=== PATIENT | female | born 1960 | race Hispanic/Latino ===

== ENCOUNTER 2023-07-19 07:17 | Day surgery (SDC) | payer OTHER ==
[2023-07-19] MEDS ORDERED: CLINDAMYCIN 900MG/D5W 900 MG/50 ML IVPB IV ONE (07:49)
[2023-07-19] MEDS ORDERED: NA CHLORIDE 0.9% 1,000 ML ONE (07:49)
[2023-07-19] MEDS ORDERED: MIDAZOLAM HCL 2 MG/2 ML INJ ONE (08:17)
[2023-07-19] MEDS ORDERED: LIDOCAINE 2% MPF 5 ML VIAL ONE (08:17)
[2023-07-19] MEDS ORDERED: dexAMETHasone 10 MG/ML VIAL ONE (08:17)
[2023-07-19] MEDS ORDERED: FENTANYL CITR 100 MCG/2 ML ONE (08:17)
[2023-07-19] MEDS ORDERED: ROCURONIUM 50 MG/5 ML VIAL IV ONE (08:17)
[2023-07-19] MEDS ORDERED: propofoL 200 MG/20 ML VIAL IV ONE (08:17)
[2023-07-19] MEDS ORDERED: KETAMINE HCL IN 0.9 % NACL 50 MG/5 ML SYRINGE IV ONE (08:17)
[2023-07-19] MEDS ORDERED: ONDANSETRON 4 MG/2 ML VIAL ONE (08:23)
[2023-07-19] MEDS ORDERED: BACITRACIN OINTMENT 14 GM TUBE TOP ONE (08:54)
[2023-07-19] MEDS ORDERED: LIDOCAINE HCL/EPINEPHRINE 20 ML MDV ONE (08:55)
[2023-07-19] MEDS ORDERED: EPINEPHRINE/PF 1 MG/ML AMP ONE (08:55)
[2023-07-19] MEDS ORDERED: OXYMETAZOLINE HCL 0.05% 15ML NAS ONE (08:55)
[2023-07-19] MEDS ORDERED: OFLOXACIN OPH 0.3%-5 ML BTL ONE ×2 (08:55→12:12)
[2023-07-19] MEDS ORDERED: Mastisol Adhesive Liq ONE ×3 (09:37→11:21)
[2023-07-19] MEDS ORDERED: EPHEDRINE SULF 50 MG/ML VIAL ONE (09:45)
[2023-07-19] MEDS ORDERED: TISSEEL VH 2 ML KIT TOP ONE (09:57)
[2023-07-19] MEDS ORDERED: KETOROLAC 30 MG/ML INJ ONE (09:58)
[2023-07-19 13:35] VITALS: BP 148/82; TEMP 97; O2SAT 95
--- NOTE | 2023-07-20 15:44 | OP ---
Date of Procedure: 07/19/2023 Surgeon: BEN MICHELE Preoperative Diagnoses: 1.Chronic left ear otitis media. 2.Chronic left mastoiditis. Postoperative Diagnoses: 1.Chronic left ear otitis media. 2.Chronic left mastoiditis. Procedures: 1.Simple left mastoidectomy. 2.Left myringotomy with tympanostomy tube. 3.Facial nerve monitoring with nerve integrity monitoring system by [employer]. 4. Anesthesia: General endotracheal anesthesia was administered. I also infiltrated approximately 10 m L of 1% lidocaine with 1:100,000 epinephrine at the postauricular incision site as well as at the lef t ear canal at the bony cartilaginous junction. Estimated Blood Loss: Scant, between 3 and 5 mL. Specimens: None. Findings: Moderate sclerotic mastoid bone with mucosal disease noted in the mastoid air cells. Tymp anosclerosis, left ear, with evidence of mucoid middle ear effusion. Complications: None. Disposition: Stable. The patient tolerated the procedure well. Indication For Procedure: Patient is a pleasant 63-year-old female who [facility] after experiencing a fluid sensation in her left ear with pain and decreased hearing. Examinati on revealed mucoid middle ear effusion involving the left ear and a CT scan demonstrated opacificatio n of multiple mastoid air cells. Her condition has been refractory to outpatient oral antibiotics, t hus these were indications to bring the patient to operative suite for the above-mentioned procedure. She understood. All questions were answered. Risks versus benefits and complications were explain ed in detail and a consent form was signed which was placed on the chart. Description Of Procedure: Patient was transferred from the preoperative holding area to the operativ e suite by Department of Anesthesia, placed on the operative table supine, sedated, intubated in norm al fashion. I infiltrated approximately 10 mL of 1% lidocaine with 1:100,000 epinephrine into the le ft postauricular skin as well as at the bony cartilaginous junction of the left external auditory can al. The nerve integrity monitoring system was calibrated to the patient with grounding electrodes as well as electrodes located at the orbicularis oculi muscle and the orbicularis auris muscle. The pa tient was not given any paralytic during the procedure. Patient was then sterilely prepped and draped. Table was rotated to approximately 90 degrees. Utili zing the microscope, I made a myringotomy into the anterior-inferior quadrant of the left tympanic me mbrane. I was able to visualize the entire tympanic membrane with 5 mm speculum. Patient had signif icant sclerosis of the drum. She also had a small amount of mucoid middle ear effusion. A left postauricular incision was made down through the epidermis down to the temporalis muscle layer and I switched over to monopolar electrocautery on a setting of 20 for coagulation to dissect down t o the temporal bone. Once down in the temporal bone, I brought in the microscope and elevated the fa scia and muscle off the left temporal bone to expose the spine of Henle. I then elevated the ear can al skin until I could see the middle ear space. Once the tissue was completely elevated, I then star preethi my mastoid dissection utilizing #6 cutting bur. I started the dissection posterior to the left s pine of Henle and just slightly inferior. I dissected down utilizing the #5 and #6 cutting burs. Jeremy jj's mastoid was rather shallow and sclerotic, but she did have several cells that were opened and demonstrated mucosal disease. The diseased mucosa was removed with suction and alligator forceps. She had little to no bleeding. I was able to dissect anteriorly until I could see the horizontal jose icircular canal and I could also see the antrum of the mastoid. Once I dissected to the antrum, I th en introduced saline into the ear canal and then I was able to suction the fluid out through the antr um, thereby confirming that there was a passageway. I then placed a small piece of Surgicel into the mastoid cavity. I then reapproximated the subcutaneous subdermal and dermal tissue layers with 4-0 Vicryl in a running fashion followed by epidermal layer closure with 4-0 Monocryl in a simple running fashion. I then went back to my myringotomy site and placed a Kell bobbin tympanostomy tube into the myringotomy with alligator forceps. Ofloxacin drops were placed into the canal and a cotton ball was placed into the meatal opening. Patient was then fitted with a mastoid dressing. She tolerated the procedure well, will be discharged home on antibiotic and analgesic medication and then she will follow up in 1 week for her postop visit. There was no evidence of facial nerve exposure or facial nerve dehiscence and the nerve integrity monitoring system was functioning appropriately throughout t he case. BENNY/ELLISL Voice ID: [id number] Report ID: [id number]
== END 2023-07-19 13:30 | disposition home or self-care (01) ==
LOC: OR 07:17
PROVIDERS: ATTEND Otolaryngology Facial Plastic Surgery
PROC: 099670Z Drainage of Left Middle Ear with Drainage Device, Via Natural or Artificial Opening (ICD-10-PCS; principal; 2023-07-19 09:00)
PROC: 0NB60ZZ Excision of Left Temporal Bone, Open Approach (ICD-10-PCS; 2023-07-19 09:00)
DX: H70.12 Chronic mastoiditis, left ear (principal); H65.32 Chronic mucoid otitis media, left ear; E11.9 Type 2 diabetes mellitus without complications; E78.00 Pure hypercholesterolemia, unspecified; M19.90 Unspecified osteoarthritis, unspecified site; I10 Essential (primary) hypertension; F41.9 Anxiety disorder, unspecified; E66.01 Morbid (severe) obesity due to excess calories; Z68.43 Body mass index [BMI] 50.0-59.9, adult; Z88.0 Allergy status to penicillin
CPT/HCPCS: 69436; 69501; 82947 ×2; J2704; J0171; J2001; J2250; J3010; J1100; J2405; J7030

== ENCOUNTER 2024-01-20 05:49 | Emergency (ER) | payer OTHER ==
--- OUTSIDE RECORDS SUMMARY | 2024-01-20 05:53 | XMS REPORT | Continuity of Care Document ---
Author Name Unknown Address [address] [facility] [address] [place] [address] [facility] thconnect Address [address] [facility] [address] [place] [address] Care Team Providers Care Filling Machine Tender Name Role Phone Kelsea Hicks Primary Care Physician [phone] [email or web address] Attending Clinician Unavaila Adrián Aquino MD Attending Clinician [phone] Edmond ARRINGTON Attending Clinician Unavailable Edmond Myers Attending Clinician [phone] Louis Alford MD Attending Clinician [phone] [place] Attending Clinician Unavailable [email or web address]_S Admitting Clinician Deepika gil Payers Payer Name Policy Type Policy Number Effective Date Expirati on Date Source [place]IC[place]: [employer] [id number] 2007 00:00:00 [facility] [id number] 2016 00:00:00 Problems Condition Name Condition Details Condition Category Status Onset Date Resolution Date Last Treatment Date Treating Clinician Comments Source Encounter for screening mammogram for breast cancer Encounter for screening mammogram for breast cancer Disease Active 11-09 00:00: 00 [facility] Morbid obesity due to excess calories [E66.01] Morbid obesity due to excess calories [E66.01] Disease Active 11-09 00:00: 00 [facility] Essential hypertensi on Essential hypertensi on Disease Active 11-09 00:00: 00 [facility] Non-insuli n dependent type 2 diabetes mellitus Non-insuli n dependent type 2 diabetes mellitus Disease Active 11-09 00:00: 00 [facility] Generalize d anxiety disorder Generalize d anxiety disorder Disease Active 11-09 00:00: 00 [facility] Polyp at cervical os Polyp at cervical os Disease Active 11-09 00:00: 00 [facility] Post-menop ause bleeding Post-menop ause bleeding Disease Active 11-09 00:00: 00 [facility] Allergies, Adverse Reactions, Alerts Allergy Name Allergy Type Status Severity Reaction(s) Onset Date Inactive Date Treating Clinician Comments Source Vaccine Adjuvant Emulsion Combinat ion No. 1 Propensi ty to adverse reaction s Active Other - See comments 11-09 00:00: 00 Per pt has swelling to arm and was told by md she had reaction and to no longer get a td vaccine d/t reaction [facility] VACCINE ADJUVANT EMULSION COMBINAT ION NO. 1 DRUG INGREDI Active Swelling 11-09 00:00: 00 [facility] Vaccine Adjuvant Emulsion As03 Propensi ty to adverse reaction s Active Other - See comments 11-09 00:00: 00 Per pt has swelling to arm and was told by she had reaction and to no longer get a td vaccine d/t reaction [facility] Penicill ins Propensi ty to adverse reaction s to drug Active Unknown - See comments 06-18 00:00: 00 Pt states " I don't know what happens, all I know is that I am allergic since I was little." [facility] PENICILL INS Drug Class Active High Unknown-Cmnt 06-18 00:00: 00 [facility] Penicill ins Propensi ty to adverse reaction s to drug Active Unknown - See comments 06-18 00:00: 00 Pt states " I don't know what happens, all I know is that I am allergic since I was little." [facility] Social History Social Habit Start Date Stop Date Quantity Comments Source Exposure to SARS-CoV-2 (event) Not sure [facility] Alcohol intake 2022-04-25 00:00:00 2022-04-25 00:00:00 0 /d [facility] Tobacco use and exposure 2016-11-09 00:00:00 2016-11-09 00:00:00 Smokeless tobacco non-user [facility] Sex Ass[birth year] At 1960 00:00:00 1960 00:00:00 [facility] Smoking Status Start Date Stop Date Source Never smoked tobacco [facility] Medications Ordered Medication Name Filled Medication Name Start Date Stop Date Current Medication? Ordering Clinician Indication Dosage Frequency Signature (SIG) Comments Components Source diclofenac 75 mg EC tablet 2020-10 12:23: 25 09-18 00:00 :00 No 75mg Take 75 mg by mouth daily. [facility] ibuprofen 600 mg tablet 2020-10 00:00: 00 Yes [id number] 600mg Take 1 tablet by mouth every 6 (six) hours as needed for Pain (scale 4-6). [facility] methocarbam oL 500 mg tablet 2020-10 00:00: 00 Yes [id number] 500mg Take 1 tablet by mouth 4 (four) times daily. [facility] FENTanyl PF (SUBLIMAZE (PF)) injection 75 mcg 2020-10 06:00: 00 09-16 06:06 :00 No 75ug 75 mcg, Intramuscu lar, ONCE, 1 dose, On Sun09/16/21 at 0000, Routine [facility] lisinopril 20 mg tablet 11-09 09:11: 08 Yes 20mg Take 20 mg by mouth daily. [facility] metFORMIN 500 mg tablet 11-09 09:11: 08 Yes 500mg Take 500 mg by mouth as needed. [facility] diclofenac 75 mg EC tablet 11-09 09:11: 08 Yes 75mg Take 75 mg by mouth daily. [facility] Vital Signs Vital Name Observation Time Observation Value Comments S ource Systolic blood pressure 2021-09-18 17:30:00 151 mm[Hg] [facility] Diastolic blood pressure 2021-09-18 17:30:00 58 mm[Hg] [facility] Heart rate 2021-09-18 17:30:00 71 /min [facility] Body temperature 2021-09-18 17:30:00 36.56 Chelsy [facility] Respiratory rate 2021-09-18 17:30:00 18 /min [facility] Body weight 2021-09-18 17:30:00 122.471 kg [facility] BMI 2021-09-18 17:30:00 52.73 kg/m2 [facility] Oxygen saturation in Arterial blood by Pulse oximetry 2021-09-18 17:30:00 99 /min [facility] Systolic blood pressure 2021-09-16 06:00:00 152 mm[Hg] [facility] Diastolic blood pressure 2021-09-16 06:00:00 78 mm[Hg] [facility] Heart rate 2021-09-16 06:00:00 85 /min [facility] Respiratory rate 2021-09-16 06:00:00 21 /min [facility] Oxygen saturation in Arterial blood by Pulse oximetry 2021-09-16 06:00:00 100 /min [facility] Body temperature 2021-09-16 04:14:00 37.17 Chelsy [facility] Body weight 2021-09-16 04:14:00 122.471 kg [facility] BMI 2021-09-16 04:14:00 52.73 kg/m2 [facility] Procedures Procedure Date / Time Performed Performing Clinicia n Source NOTICE OF PRIVACY PRACTICES 2021-09-16 04:02:07 Doctor Unassigned, [place] [facility] CONSENT/REFUSAL FOR DIAGNOSIS AND TREATMENT 2021-09-16 04:00:02 Doctor Unassigned, [place] [facility] Encounters Start Date/Time End Date/Time Encounter Type Admission Type Attending [facility] Care Department Encounter ID Source 2023-11-08 00:00:00 2023-11-08 00:00:00 Outpatient GC_GCBZW_Ka diyala_S PRIV PRIV [id number] [facility] 2023-10-24 08:18:08 2023-10-24 08:18:08 Outpatient SFA SFA [id number] Roger Morales 2023-09-26 09:36:09 2023-09-26 09:36:09 Outpatient SFA SFA [id number] Roger Morales 2023-08-29 14:40:54 2023-08-29 14:40:54 Outpatient SFA [id number] [id number] Roger Morales 2023-08-22 09:05:28 2023-08-22 09:05:28 Outpatient SFA SFA [id number] Roger Morales 2023-07-18 00:00:00 2023-07-18 00:00:00 Outpatient [email or web address]_Ka diyala_S PRIV PRIV [id number] [facility] 2023-07-17 11:00:14 2023-07-17 11:00:14 Outpatient SFA SFA [id number] Roger Morales 2023-07-03 00:00:00 2023-07-03 00:00:00 Outpatient GC_GCBZW_Ka diyala_S PRIV PRIV [id number] [facility] 2023-07-02 13:19:57 2023-07-02 13:19:57 Outpatient SFA SFA [id number] Roger Morales 2023-06-18 07:41:03 2023-06-18 07:41:03 Outpatient SFA SFA [id number] Roger Morales 2023-06-15 09:20:34 2023-06-15 09:20:34 Outpatient SFA SFA [id number] Roger Morales 2023-06-05 00:00:00 2023-06-05 00:00:00 Outpatient GC_GCBZW_Ka diyala_S PRIV PRIV [id number] [facility] 2023-05-31 00:00:00 2023-05-31 00:00:00 Outpatient GC_GCBZW_Ka diyala_S PRIV PRIV [id number] [facility] 2023-03-09 07:10:58 2023-03-09 07:10:58 Outpatient [facility] [id number] Roger Morales 2022-10-20 00:00:00 2022-10-20 00:00:00 Telephone Adrián Bishop [facility] [id number] [facility] 2021-09-18 11:30:00 2021-09-18 12:28:00 Emergency X Edmond ARRINGTON [facility] ERT [id number] [facility] 2021-09-18 11:30:00 2021-09-18 12:28:00 Emergency Edmond Arrington [facility] [id number] [facility] 2021-09-15 22:16:00 2021-09-16 00:16:00 Emergency Louis Alford [facility] [id number] [facility] 2021-09-15 22:16:00 2021-09-16 00:16:00 Emergency X L[place] AL[place] [facility] ERT [id number] [facility]
[2024-01-20] MEDS ORDERED: LORAZEPAM 1 MG TABLET ONE (06:18)
[2024-01-20 06:22] LABS: Absolute Lymphocytes (CBC) 1.3 K/uL (0.7-4.9); Absolute Monocytes 0.5 K/uL (0.1-1.3); Absolute Neutrophil 6.7 K/uL (1.8-8.0); Basophils % 0.5 % (0-1.3); Eosinophils % 0.5 % (0-4.4); Hematocrit 41.3 % (36.0-45.0); Lymphocytes % 14.9 % (15.3-44.8); MCH 28.8 pg (27.0-35.0); MCHC 33.8 g/dL (32.0-36.0); MCV 85.2 fL (80-100); Monocytes % 5.6 % (3.3-12.3); Neutrophils % 78.5 % (41.7-73.7); Platelets 244 thou/uL (152-406); RBC Red Blood Cell Count 4.84 M/uL (3.86-4.86); Red Cell Distribution Width 13.5 % (12.1-15.2)
[2024-01-20 06:42] LABS: Albumin 3.7 g/dL (3.4-5.0); Albumin/Globulin Ratio 1.2 (1.1-1.8); Anion Gap 9.3 mEq/L (5.0-15.0); Bilirubin Direct 0.3 mg/dL (0-0.2); Bilirubin Total 1.3 mg/dL (0.2-1.0); Magnesium 1.6 mg/dL (1.6-2.4); Potassium 3.3 mEq/L (3.5-5.1); Protein, Total 6.7 g/dL (6.4-8.2); Troponin High Sensitivity 57.5 pg/mL (<58.9)
--- NOTE | 2024-01-20 07:03 | ER ---
Nurse's Notes [facility] Name: Jaylene Cárdenas Age: 63 yrs Sex: Female : 1960 Arrival Date: 01/20/2024 Time: 05:49 Bed 7 Private MD: Diagnosis: Anxiety disorder, unspecified;Shortness of breath Presentation: 01/19 05:50 Chief complaint: Patient states: I just lost my son two days ago, i found him. I bm8 counldnt breathe. but i am feeling better now EMS states: pt's son was found by pt. she has a hx of anxiety and was having pronounced shortness of breath. Coronavirus screen: Vaccine status: Client denies travel out of the [place] in the last 14 days. At this time, the client does not indicate any symptoms associated with coronavirus-19. Ebola Screen: Patient negative for fever greater than or equal to 101.5 degrees Fahrenheit, and additional compatible Ebola Virus Disease symptoms Patient denies exposure to infectious person. Patient denies travel to an Ebola-affected area in the 21 days before illness onset. No symptoms or risks identified at this time. Initial Sepsis Screen: Does the patient meet any 2 criteria? No. Patient's initial sepsis screen is negative. Does the patient have a suspected source of infection? No. Patient's initial sepsis screen is negative. Risk Assessment: Do you want to hurt yourself or someone else? Patient reports no desire to harm self or others. Onset of symptoms was January 20, 2024 at 04:00. Care prior to arrival: Medication(s) given: IV initiated. 20 GA, in the right forearm, Glucose check: 174 Oxygen administered. via nasal cannula. 05:50 Method Of Arrival: EMS: [place] [id number] 05:50 Acuity: MUMTAZ 2 bm8 Triage Assessment: 06:06 General: Appears distressed, uncomfortable, Behavior is cooperative, appropriate for bm8 age, anxious. Pain: Denies pain. EENT: No deficits noted. No signs and/or symptoms were reported regarding the EENT system. Neuro: No deficits noted. Level of Consciousness is awake, alert, obeys commands, Oriented to person, place, time, situation, Manager Plan are equal bilaterally. Cardiovascular: Denies chest pain, Heart tones S1 S2 present Capillary refill < 3 seconds Patient's skin is warm and dry. Rhythm is sinus rhythm. Respiratory: Reports shortness of breath labored breathing Airway is patent Respiratory effort is even, unlabored, Respiratory pattern is regular, symmetrical, Breath sounds are clear bilaterally. Onset: The symptoms/episode began/occurred just prior to arrival, the patient has mild shortness of breath. GI: No deficits noted. No signs and/or symptoms were reported involving the gastrointestinal system. : No deficits noted. No signs and/or symptoms were reported regarding the genitourinary system. Derm: No deficits noted. No signs and/or symptoms reported regarding the dermatologic system. Musculoskeletal: No deficits noted. No signs and/or symptoms reported regarding the musculoskeletal system. Historical: - Allergies: 06:06 PENICILLINS; bm8 - Home Meds: 06:06 Unable to obtain [Active]; bm8 - PMHx: 06:06 Arthritis; diabetes mellitus; Hypertensive disorder; bm8 - PSHx: 06:06 Unable to Obtain; bm8 - Immunization history:: Adult Immunizations up to date. - Infectious Disease History:: Denies. - Social history:: Smoking status: Patient denies any tobacco usage or history of. Patient/guardian denies using alcohol, street drugs, IV drugs, over the counter diet medications, tobacco products. - Family history:: not pertinent. Screenin:09 [facility] ED Fall Risk Assessment (Adult) History of falling in the last 3 months, bm8 including since admission No falls in past 3 months (0 pts) Confusion or Disorientation No (0 pts) Intoxicated or Sedated No (0 pts) Impaired Gait No (0 pts) Mobility Assist Device Used No (0 pt) Altered Elimination No (0 pt) Score/Fall Risk Level 0 - 2 = Low Risk Oriented to surroundings, Maintained a safe environment, Educated pt \T\ family on fall prevention, incl call for assistance when getting out of bed, Hourly rounding (assess needs \T\ fall precautionary measures) done. Abuse screen: Denies threats or abuse. Nutritional screening: No deficits noted. Tuberculosis screening: No symptoms or risk factors identified. Assessment: 06:09 Reassessment: see triage note. bm8 07:43 Reassessment: Patient appears in no apparent distress at this time. Patient and/or iw family updated on plan of care and expected duration. Pain level reassessed. Patient is alert, oriented x 3, equal unlabored respirations, skin warm/dry/pink. Patient states feeling better. Patient states symptoms have improved. Cardiovascular: Patient's skin is warm and dry. Vital Signs: 05:50 BP 155 / 70; Pulse 82; Resp 16; Temp 98.5; Pulse Ox 99% on 2 lpm NC; Weight 114.31 kg; bm8 Height 4 ft. 11 in. ; Pain 0/10; 06:00 BP 130 / 68; Pulse 74; Resp 20; Temp 97.5; Pulse Ox 100% on 2 lpm NC; Pain 0/10; bm8 07:43 BP 109 / 64; Pulse 71; Resp 16; Pulse Ox 98% on 2 lpm NC; Pain 0/10; iw 05:50 Body Mass Index 50.90 (114.31 kg, 149.86 cm) bm8 05:50 Pain Scale: Adult bm8 06:00 Pain Scale: Adult bm8 07:43 Pain Scale: Adult iw Pam Coma Score: 06:00 Eye Response: spontaneous(4). Motor Response: obeys commands(6). Verbal Response: bm8 oriented(5). Total: 15. 06:09 Eye Response: spontaneous(4). Motor Response: obeys commands(6). Verbal Response: bm8 oriented(5). Total: 15. ED Course: 05:59 Patient arrived in ED. vc1 06:00 Matt Bo MD is Attending Physician. rt 06:00 Patient has correct armband on for positive identification. Bed in low position. Call bm8 light in reach. Side rails up X2. Adult w/ patient. 06:01 Chacho Bishop, YOLANDA is Primary Nurse. bm8 06:06 Triage completed. bm8 06:09 Patient has correct armband on for positive identification. Bed in low position. Call bm8 light in reach. Side rails up X2. Adult w/ patient. Provided Education on: post er care. Client placed on continuous cardiac and pulse oximetry monitoring. NIBP monitoring applied. shelter monitor on. Pulse ox on. NIBP on. Door closed. Noise minimized. Visitors limited. Warm blanket given. Verbal reassurance given. Head of bed elevated. 06:09 No provider procedures requiring assistance completed. Maintain EMS IV. Dressing bm8 intact. Good blood return noted. Site clean \T\ dry. Gauge \T\ site: 20g right hand. Oxygen administration via nasal cannula \T\ 2L/min Response to oxygen therapy: symptoms improved. 06:55 XRAY Chest (1 view) In Process Unspecified. EDMS 06:57 Report given to yolanda pablo. bm8 06:58 Primary Nurse role handed off by Chacho Bishop RN bm8 07:00 Arm band placed on. iw 07:43 Rosita Merchant RN is Primary Nurse. iw 07:43 IV discontinued, intact, bleeding controlled, No redness/swelling at site. Pressure iw dressing applied. Administered Medications: 06:19 Drug: LORazepam PO 1 mg PO once Route: PO; bm8 07:30 Follow up: Response: No adverse reaction; Marked relief of symptoms iw Medication: 06:09 VIS not applicable for this client. bm8 Outcome: 07:02 Discharge ordered by . rt 07:43 Discharged to home ambulatory, with family, iw 07:43 Condition: good 07:43 Discharge instructions given to patient, family, Instructed on discharge instructions, follow up and referral plans. Demonstrated understanding of instructions, follow-up care, 07:44 Patient left the ED. iw Signatures: Dispatcher [employer] EDMS Rosita Merchant RN RN iw Nilsa Arroyo RN RN vc1 Matt Bo MD MD rt Chacho Bishop RN RN bm8 Corrections: (The following items were deleted from the chart) 06:31 06:06 Splint/sling/ice applied as appropriate. Arm band placed on left wrist. Patient bm8 placed in an exam room, on a stretcher, on oxygen, on monitor technician, on pulse oximetry, bm8 06:31 06:00 BP 119 / 72; Pulse 79bpm; Resp 17bpm; Pulse Ox 96%; Temp 97.5F; Pain 0/10, Adult; bm8 bm8
--- NOTE | 2024-01-20 07:03 | EDPHYS ---
Physician Documentation [facility] Name: Jaylene Cárdenas Age: 63 yrs Sex: Female : 1960 Arrival Date: 01/20/2024 Time: 05:49 Bed 7 Private MD: ED Physician Matt Bo HPI: 01/19 06:12 This 63 yrs old Female presents to ER via EMS with complaints of Anxiety, rt Shortness Of Breath. 06:12 Patient had a recent in family, patient woke up having difficulty breathing. rt States that is better, not completely resolved at this time. Denies any chest pain, other acute complaints, symptoms are moderate in severity, no other aggravating or alleviating factors.. Historical: - Allergies: 06:06 PENICILLINS; bm8 - Home Meds: 06:06 Unable to obtain [Active]; bm8 - PMHx: 06:06 Arthritis; diabetes mellitus; Hypertensive disorder; bm8 - PSHx: 06:06 Unable to Obtain; bm8 - Immunization history:: Adult Immunizations up to date. - Infectious Disease History:: Denies. - Social history:: Smoking status: Patient denies any tobacco usage or history of. Patient/guardian denies using alcohol, street drugs, IV drugs, over the counter diet medications, tobacco products. - Family history:: not pertinent. ROS: 06:12 Constitutional: Negative for fever, chills, and weight loss, Cardiovascular: Negative rt for chest pain, palpitations, and edema, Abdomen/GI: Negative for abdominal pain, nausea, vomiting, diarrhea, and constipation, MS/Extremity: Negative for injury and deformity, Skin: Negative for injury, rash, and discoloration, 06:12 Respiratory: Positive for shortness of breath, Negative for cough, 06:12 Psych: Positive for anxiety, Negative for suicidal ideation, Exam: 06:12 Constitutional: This is a well developed, well nourished patient who is awake, alert, rt and in no acute distress. Head/Face: Normocephalic, atraumatic. Chest/axilla: Normal chest wall appearance and motion. Nontender with no deformity. No lesions are appreciated. Cardiovascular: Regular rate and rhythm with a normal S1 and S2. No gallops, murmurs, or rubs. Normal PMI, no JVD. No pulse deficits. Respiratory: Lungs have equal breath sounds bilaterally, clear to auscultation and percussion. No rales, rhonchi or wheezes noted. No increased work of breathing, no retractions or nasal flaring. Abdomen/GI: Soft, non-tender, with normal bowel sounds. No distension or tympany. No guarding or rebound. No evidence of tenderness throughout. Skin: Warm, dry with normal turgor. Normal color with no rashes, no lesions, and no evidence of cellulitis. MS/ Extremity: Pulses equal, no cyanosis. Neurovascular intact. Full, normal range of motion. Neuro: Awake and alert, GCS 15, oriented to person, place, time, and situation. Cranial nerves II-XII grossly intact. Motor strength 5/5 in all extremities. Sensory grossly intact. Cerebellar exam normal. Normal gait. 06:22 ECG was reviewed by the Attending Physician. rt Vital Signs: 05:50 BP 155 / 70; Pulse 82; Resp 16; Temp 98.5; Pulse Ox 99% on 2 lpm NC; Weight 114.31 kg; bm8 Height 4 ft. 11 in. ; Pain 0/10; 06:00 BP 130 / 68; Pulse 74; Resp 20; Temp 97.5; Pulse Ox 100% on 2 lpm NC; Pain 0/10; bm8 07:43 BP 109 / 64; Pulse 71; Resp 16; Pulse Ox 98% on 2 lpm NC; Pain 0/10; iw 05:50 Body Mass Index 50.90 (114.31 kg, 149.86 cm) bm8 05:50 Pain Scale: Adult bm8 06:00 Pain Scale: Adult bm8 07:43 Pain Scale: Adult iw Pam Coma Score: 06:00 Eye Response: spontaneous(4). Motor Response: obeys commands(6). Verbal Response: bm8 oriented(5). Total: 15. 06:09 Eye Response: spontaneous(4). Motor Response: obeys commands(6). Verbal Response: bm8 oriented(5). Total: 15. MDM: 06:00 Patient medically screened. rt 07:03 Differential diagnosis: Anemia Anxiety Reaction CHF exacerbation, Chronic Obstructive rt Pulmonary Disease. Data reviewed: vital signs, nurses notes, lab test result(s), EKG, radiologic studies. Consideration of Admission/Observation Escalation of care including admission/observation considered. Independent interpretation of the following test(s) in the Emergency Department X-Ray: My interpretation is No pneumonia, pneumothorax, pulmonary edema seen on my interpretation of x-ray images. Test considered but Not performed: CT: Low suspicion for PE, CT angiogram not indicated. Care significantly affected by the following chronic conditions: Diabetes, Hypertension. Counseling: I had a detailed discussion with the patient and/or guardian regarding the historical points, exam findings, and any diagnostic results supporting the discharge/admit diagnosis, lab results, radiology results, the need for outpatient follow up, to return to the emergency department if symptoms worsen or persist or if there are any questions or concerns that arise at home. Response to treatment: the patient's symptoms have markedly improved after treatment. 01/19 06:06 Order name: Basic Metabolic Panel; Complete Time: 06:43 rt 01/19 06:06 Order name: CBC with Diff; Complete Time: 06:43 rt 01/19 06:06 Order name: LFT's; Complete Time: 06:43 rt 01/19 06:06 Order name: Magnesium; Complete Time: 06:43 rt 01/19 06:06 Order name: NT PRO-BNP; Complete Time: 06:43 rt 01/19 06:06 Order name: Troponin HS; Complete Time: 06:43 rt 01/19 06:06 Order name: XRAY Chest (1 view) rt 01/19 06:06 Order name: EKG; Complete Time: 06:07 rt 01/19 06:06 Order name: Cardiac monitoring; Complete Time: 06:19 rt 01/19 06:06 Order name: EKG - Nurse/Tech; Complete Time: 06:19 rt 01/19 06:06 Order name: IV Saline Lock; Complete Time: 06:19 rt 01/19 06:06 Order name: Labs collected and sent; Complete Time: 06:19 rt 04 06:06 Order name: O2 Per Protocol; Complete Time: 06:19 rt 01/19 06:06 Order name: O2 Sat Monitoring; Complete Time: 06:19 rt EC:22 Rate is 76 beats/min. Rhythm is regular, Normal Sinus Rhythm with No ectopy. QRS [place] rt is Normal. ME interval is normal. QRS interval is normal. QT interval is prolonged at 510 msec. No Q waves. T waves are Normal. No ST changes noted. Administered Medications: 06:19 Drug: LORazepam PO 1 mg PO once Route: PO; bm8 07:30 Follow up: Response: No adverse reaction; Marked relief of symptoms iw Disposition Summary: 01/20/24 07:02 Discharge Ordered Notes: Location: Home rt Problem: new rt Symptoms: have improved rt Condition: Stable rt Diagnosis - Anxiety disorder, unspecified rt - Shortness of breath rt Followup: rt - With: Private Physician - When: 2 - 3 days - Reason: Discharge Instructions: - Discharge Summary Sheet rt - Managing Anxiety, Adult rt Forms: - Medication Reconciliation Form rt - Thank You Letter rt - Antibiotic Education rt - Prescription Opioid Use rt - Patient Portal Instructions rt - Leadership Thank You Letter rt Signatures: Dispatcher [employer] EDMS Matt Bo MD MD rt Chacho Bishop RN RN bm8 Rosita Merchant RN iw Corrections: (The following items were deleted from the chart) 06:07 06:07 BASIC METABOLIC PANEL+C.LAB.BRZ ordered. EDMS EDMS 06:07 06:07 CBC+H.LAB.BRZ ordered. EDMS EDMS 06:07 06:07 HEPATIC FUNCTION+C.LAB.BRZ ordered. EDMS EDMS 06:07 06:07 MAGNESIUM+C.LAB.BRZ ordered. EDMS EDMS 06:07 06:07 PROBNP+C.LAB.BRZ ordered. EDMS EDMS 06:07 06:07 Troponin High Sensitivity+C.LAB.BRZ ordered. EDMS EDMS
--- NOTE | 2024-01-20 07:15 | RAD REPORT ---
EXAM DESCRIPTION: RAD - Chest Single View - 01/20/2024 6:53 am CLINICAL HISTORY: DYSPNEA COMPARISON: No comparisons FINDINGS: Lines: None. Lungs: No evidence of edema or pneumonia. Pleural: No significant pleural effusions or pneumothorax. Cardiac: The heart size is within normal limits. Mediastinum: Within normal limits. Aortic atherosclerosis . Bones: No acute fractures. Other: None IMPRESSION: No acute cardiopulmonary disease.
[2024-01-20 12:35] VITALS: BP 109/64; TEMP 97.5; O2SAT 98
--- NOTE | 2024-01-21 12:44 | EKG ---
Test Date: 2024-01-20 Test Time: 06:17:28 Legal Administrator: MEERA MEASUREMENT RESULTS: Intervals: Rate: 76 KS: 150 QRSD: 82 QT: 454 QTc: 510 [place]: P: 37 KS: 150 QRS: 80 T: 29 INTERPRETIVE STATEMENTS: Normal sinus rhythm Low voltage QRS Prolonged QT Abnormal ECG No previous ECG available for comparison Electronically Signed On 01-21-24 12:41:04 CDT by Ramesh Mcgregor
== END 2024-01-20 07:44 | disposition home or self-care (01) ==
LOC: ER 05:49
DX: F41.9 Anxiety disorder, unspecified (principal); I10 Essential (primary) hypertension; E11.9 Type 2 diabetes mellitus without complications; Z88.0 Allergy status to penicillin
CPT/HCPCS: 36415; 71045; 80048; 80076; 83735; 83880; 84484; 85025; 93005; 99285